=== PATIENT | female | born 1975 | race Caucasian/White ===

== ENCOUNTER 2018-04-10 15:21 | Emergency (ER) | END 2018-04-10 16:02 | disposition home or self-care (01) | DX: S05.02XA Injury of conjunctiva and corneal abrasion without foreign body, left eye, initial encounter (principal); X58.XXXA Exposure to other specified factors, initial encounter; Y93.89 Activity, other specified; Y92.89 Other specified places as the place of occurrence of the external cause; Y99.8 Other external cause status ==